=== PATIENT | female | born 1965 | race Caucasian/White ===

== ENCOUNTER 2018-12-18 08:01 | Day surgery (SDC) | payer MEDICAID ==
[2018-12-18 09:30] VITALS: BMI 31.6
[2018-12-18] MEDS ORDERED: Lactated Ringer's 500 ML IV ONE (09:35)
[2018-12-18 09:43] VITALS: O2SAT 99
[2018-12-18] MEDS ORDERED: Propofol 10 mg/ml Inj (20 ML) ONE (10:16)
[2018-12-18 12:46] VITALS: BP 96/55; PULSE 63; RESP 19; TEMP 98.5
== END 2018-12-18 11:20 | disposition home or self-care (01) ==
LOC: H.ENDO 08:01 → MERGE 08:01 → EDBD 09:30 → H.ENDO 11:20
PROVIDERS: ATTEND Internal Medicine Gastroenterology
DX: Z12.11 Encounter for screening for malignant neoplasm of colon (principal); K64.8 Other hemorrhoids; K57.30 Diverticulosis of large intestine without perforation or abscess without bleeding
CPT/HCPCS: 45378; J2001; J2704; J7120